=== PATIENT | male | born 1965 | race Caucasian/White ===

== ENCOUNTER 2016-12-26 16:46 | Emergency (ER) | payer MEDICARE ==
[~2016-12-26] VITALS: Ht 182.9 cm; Wt 103.0 kg
[~2016-12-26 16:46] MED LIST: ARIP20TA8 PO; ASPI-650 PO; AZIT-14 PO; BENZ100C PO; BUSP15TA PO; CEPH-368 PO; CETI10CA PO; CIPR500T87 PO; FLUO20CA19 PO; IBUP800T PO; METR500T PO; OXYC-229 PO; PRED20TA PO; RISP1TAB3 PO
[2016-12-26] MEDS ORDERED: SODIUM CHLORIDE 0.9% 1,000 ML IV ONE (16:56)
[2016-12-26] MEDS ORDERED: DIPHENHYDRAMINE 50 MG/ML, 1ML IVPush ONE (17:00)
[2016-12-26 17:17] LABS: HEMOGLOBIN 16.1 g/dL (13.7-18.0)
[2016-12-26] MEDS ORDERED: DIPHENHYDRAMINE 25 MG CAPSULE ONE (17:20)
[2016-12-26 17:29] LABS: ASPARTATE AMINO TRANSFERASE 20 U/L (15-37); BLOOD UREA NITROGEN 12 mg/dL (7-18)
[2016-12-26] MEDS ORDERED: DIPHENHYDRAMINE 25 MG CAPSULE PO ONE (17:30)
[2016-12-26 18:17] VITALS: BP 147/86
== END 2016-12-26 19:05 | disposition home or self-care (01) ==
LOC: ED 18:20
DX: T43.595A Adverse effect of other antipsychotics and neuroleptics, initial encounter (principal); F41.1 Generalized anxiety disorder; J44.9 Chronic obstructive pulmonary disease, unspecified; F31.9 Bipolar disorder, unspecified; J45.909 Unspecified asthma, uncomplicated; N40.0 Benign prostatic hyperplasia without lower urinary tract symptoms; M54.9 Dorsalgia, unspecified; G89.29 Other chronic pain; F17.210 Nicotine dependence, cigarettes, uncomplicated; Z88.0 Allergy status to penicillin
CPT/HCPCS: 36415; 80053; 85025; 93005; 99285; Q0163

== ENCOUNTER 2017-06-22 07:50 | Emergency (ER) | payer MEDICARE ==
[~2017-06-22] VITALS: Ht 182.9 cm; Wt 104.1 kg
[~2017-06-22 07:50] MED LIST changes: +ARIP20TA5 PO; -ARIP20TA8 PO; -AZIT-14 PO; +AZIT250T89 PO; +IBUP-1223 PO; -IBUP800T PO; -OXYC-229 PO; +OXYC-307 PO
[2017-06-22 07:52] VITALS: BP 125/82
[2017-06-22] MEDS ORDERED: ALBUTEROL/IPRATROPIUM 2.5MG/0.5MG, 3 ML NPPB ONE (08:30)
[2017-06-22 08:34] LABS: HEMATOCRIT 45.8 % (39.2-51.8); HEMOGLOBIN 15.6 g/dL (13.7-18.0); WHITE BLOOD COUNT 7.5 x10^3/uL (3.4-10)
[2017-06-22] MEDS ORDERED: ALBUTEROL/IPRATROPIUM 2.5MG/0.5MG, 3 ML ONE (08:44)
[2017-06-22 09:10] LABS: BLOOD UREA NITROGEN 21 mg/dL (7-18)
[2017-06-22] MEDS ORDERED: SODIUM CHLORIDE FLUSH 10ML SYR IVF ONE (09:30)
== END 2017-06-22 09:54 | disposition home or self-care (01) ==
LOC: ED 09:35
DX: J44.1 Chronic obstructive pulmonary disease with (acute) exacerbation (principal); Z88.0 Allergy status to penicillin; Z88.8 Allergy status to other drugs, medicaments and biological substances
CPT/HCPCS: 36415; 71010; 80048; 82040; 83880; 85025; 93005; 94640; 99285; J7512; J7620

== ENCOUNTER → 2018-11-16 | Outpatient (CLI) | payer MEDICARE ==
[~2018-11-16] MED LIST changes: +ALBU1.25 NEB; +ALBU8.5H8 INH
[2018-11-16 11:28] LABS: BASOPHILS % (AUTO) 0 % (0-1); EOSINOPHILS # (AUTO) 0.07 x10^3/uL (0-0.4); EOSINOPHILS % (AUTO) 1 % (1-7); LYMPHOCYTES % (AUTO) 11 % (22-44); MD NO; MEAN CORPUSCULAR HEMOGLOBIN 32.6 pg (27.5-34.5); MEAN CORPUSCULAR HGB CONC 34.6 g/dL (33.2-36.2); MEAN CORPUSCULAR VOLUME 94.5 fL (81-97); MEAN PLATELET VOLUME 7.2 fL (7.4-10.4); MONOCYTES % (AUTO) 3 % (2-9); NEUTROPHILS # (AUTO) 7.96 x10^3/uL (1.8-6.8); NEUTROPHILS % (AUTO) 85 % (42-75); PLATELET COUNT 303 x10^3/uL (130-400); RED BLOOD COUNT 4.62 x10^6/uL (4.38-5.82); RED CELL DISTRIBUTION WIDTH 14.2 % (9.4-14.8)
[2018-11-16 11:38] LABS: ANION GAP 4 mmol/L (5-15); CALCIUM 9.2 mg/dL (8.5-10.1); CHLORIDE 105 mmol/L (98-107)
[2018-11-16 11:40] LABS: CREATININE 1.12 mg/dL (0.7-1.3)
[2018-11-16 11:42] LABS: INTERNATIONAL NORMALIZED RATIO 0.93 (0.93-1.1); PROTHROMBIN TIME 9.9 Seconds (9.6-11.5)
== END | disposition home or self-care (01) ==
LOC: STAR 10:23
PROVIDERS: ATTEND Neurological Surgery
DX: Z01.818 Encounter for other preprocedural examination (principal); M54.17 Radiculopathy, lumbosacral region
CPT/HCPCS: 36415; 71046; 80048; 85025; 85610; 85730; 93005

== ENCOUNTER 2018-12-12 05:19 | Day surgery (SDC) | payer MEDICARE ==
[2018-11-16 10:50] VITALS: BP 133/88
[~2018-12-12] VITALS: Ht 182.9 cm; Wt 100.3 kg
[2018-12-12] MEDS ORDERED: LACTATED RINGERS 1,000 ML IV SCH (06:04)
[2018-12-12] MEDS ORDERED: HYDR-3240 PO (06:08)
[2018-12-12 06:09] VITALS: BP 133/88
[2018-12-12] MEDS ORDERED: FENTANYL PF 250 MCG/5ML ONE (06:58)
[2018-12-12] MEDS ORDERED: MIDAZOLAM 1 MG/ML, 2ML ONE (06:58)
[2018-12-12] MEDS ORDERED: BACITRACIN 50,000 UNIT ONE (07:06)
[2018-12-12] MEDS ORDERED: BUPIVACAINE/PF-EPI 0.5% 1:200K ONE (07:06)
[2018-12-12] MEDS ORDERED: THROMBIN 5,000 UNIT VIAL TP ONE (07:06)
[2018-12-12] MEDS ORDERED: KETAMINE 50 MG/ML, 10ML ONE (07:22)
[2018-12-12] MEDS ORDERED: METOPROLOL 1 MG/ML, 5ML ONE (07:35)
[2018-12-12] MEDS ORDERED: PROPOFOL 10 MG/ML, 20ML ONE (08:01)
[2018-12-12] MEDS ORDERED: ONDANSETRON 2MG/ML, 2ML ONE (08:01)
[2018-12-12] MEDS ORDERED: PHENYLEPHRINE 10 MG/ML ONE (08:01)
[2018-12-12] MEDS ORDERED: CEFAZOLIN 1,000 MG ONE (08:01)
[2018-12-12] MEDS ORDERED: DEXAMETHASONE 4 MG/ML, 1ML ONE (08:01)
[2018-12-12] MEDS ORDERED: ROCURONIUM 10MG/ML,5ML ONE (08:01)
[2018-12-12] MEDS ORDERED: LIDOCAINE-MPF 2% ,5ML ONE (08:01)
[2018-12-12] MEDS ORDERED: MEPERIDINE/PF 100 MG/ML ONE (08:03)
[2018-12-12] MEDS ORDERED: ALBUTEROL/IPRATROPIUM 2.5MG/0.5MG, 3 ML NPPB PRN (08:30)
[2018-12-12] MEDS ORDERED: MEPERIDINE/PF 25MG/0.5ML IVPush PRN (08:30)
[2018-12-12] MEDS ORDERED: ACETAMINOPHEN 325 MG TABLET PO PRN (08:30)
[2018-12-12] MEDS ORDERED: OXYcodone 5 MG/5 ML ORAL.SOL UDC PO PRN (08:30)
[2018-12-12] MEDS ORDERED: FENTANYL PF 100 MCG/2ML IV PRN (08:30)
[2018-12-12] MEDS ORDERED: PROMETHAZINE 25 MG/ML, 1ML IV PRN (08:30)
[2018-12-12] MEDS ORDERED: hydrALAzine 20 MG/ML, 1ML IV PRN (08:30)
[2018-12-12] MEDS ORDERED: LORazepam 2 MG/ML, 1ML IVPush PRN (08:30)
[2018-12-12] MEDS ORDERED: HALOPERIDOL 5 MG/ML IV PRN (08:30)
[2018-12-12] MEDS ORDERED: HYDROmorphone 1 MG/ML, 1ML ONE ×2 (09:10→09:37)
[2018-12-12] MEDS ORDERED: OXYcodone 5 MG/5 ML ORAL.SOL UDC ONE (09:10)
[2018-12-12] MEDS ORDERED: ACETAMINOPHEN 650 MG/20.3 ML UDC ONE (09:10)
[2018-12-12] MEDS: HYDROmorphone 2 MG/ML, 1ML IVPush PRN ×3 (09:15→09:40)
[2018-12-12] MEDS ORDERED: LORazepam 2 MG/ML, 1ML ONE (09:16)
[2018-12-12] MEDS ORDERED: CYCLOBENZAPRINE 10 MG TABLET ONE (09:46)
[2018-12-12] MEDS ORDERED: CYCLOBENZAPRINE 10 MG TABLET PO ONE (10:00)
== END 2018-12-12 12:15 | disposition home or self-care (01) ==
LOC: OUT 05:19
PROVIDERS: ATTEND Neurological Surgery
DX: M51.16 Intervertebral disc disorders with radiculopathy, lumbar region (principal); M48.061 Spinal stenosis, lumbar region without neurogenic claudication; J44.9 Chronic obstructive pulmonary disease, unspecified; Z88.0 Allergy status to penicillin; Z88.8 Allergy status to other drugs, medicaments and biological substances
CPT/HCPCS: 63030; 72100; J0690; J1100; J1170; J2060; J2175; J2250; J2370; J2405; J2704; J3010; J3490; J7120

== ENCOUNTER 2019-10-13 07:21 | Emergency (ER) | payer MEDICARE ==
[~2019-10-13] VITALS: Ht 182.9 cm; Wt 108.4 kg
[~2019-10-13 07:21] MED LIST changes: +HYDR-3240 PO
[2019-10-13 07:24] VITALS: BP 151/88
--- NOTE | 2019-10-13 07:31 | NUR ---
Pt to room from lobby with steady gait and balance.
[2019-10-13] MEDS ORDERED: FLUT1AER INH (07:45)
[2019-10-13] MEDS ORDERED: ARIP20TA5 PO (07:45)
[2019-10-13] MEDS ORDERED: FLUO40CA9 PO (07:45)
[2019-10-13] MEDS ORDERED: BUSP15TA PO (07:45)
--- NOTE | 2019-10-13 08:08 | NUR ---
Patient/Caregiver given discharge instructions and they have confirmed that they understand the instructions. Patient ambulatory with steady gait.
== END 2019-10-13 08:09 | disposition home or self-care (01) ==
LOC: ED 08:00
DX: K02.9 Dental caries, unspecified (principal); F17.210 Nicotine dependence, cigarettes, uncomplicated
CPT/HCPCS: 99283

== ENCOUNTER 2019-11-01 19:06 | Inpatient (IN) | payer MEDICARE ==
[~2019-11-01] VITALS: Ht 182.9 cm; Wt 112.6 kg
[~2019-11-01 19:06] MED LIST changes: +FLUO40CA9 PO; +FLUT1AER INH
--- NOTE | 2019-11-01 19:40 | NUR ---
PT CAME IN [place] OR RIGHT SIDED ABD PAIN X 6 DAYS. PT ALSO HAS HAD COUGH FOR THE PAST WEEK. HX OF COPD. DENIES FEVERS, NVD, SORE THROAT. EKG DONE. PT HOOKED UP TO TRIM LINE WORKER. RESIDENT MD IS BEDSIDE. PT IS 95% ON ROOM AIR.
[2019-11-01] MEDS ORDERED: ALBUTEROL/IPRATROPIUM 2.5MG/0.5MG, 3 ML NPPB ONE (20:00)
[2019-11-01] MEDS ORDERED: KETOROLAC 30 MG/1 ML IM ONE (20:00)
[2019-11-01] MEDS ORDERED: ALBUTEROL/IPRATROPIUM 2.5MG/0.5MG, 3 ML ONE ×2 (20:03→20:08)
[2019-11-01] MEDS ORDERED: KETOROLAC 60 MG/2 ML ONE (20:06)
[2019-11-01 20:07] LABS: BASOPHILS # (AUTO) 0.03 x10^3/uL (0-0.1); BASOPHILS % (AUTO) 0 % (0-1); EOSINOPHILS # (AUTO) 0.14 x10^3/uL (0-0.4); EOSINOPHILS % (AUTO) 2 % (1-7); LYMPHOCYTES # (AUTO) 1.56 x10^3/uL (1-3.4); LYMPHOCYTES % (AUTO) 20 % (22-44); MD NO; MEAN CORPUSCULAR HEMOGLOBIN 32.4 pg (27.5-34.5); MEAN CORPUSCULAR VOLUME 95.2 fL (81-97); MEAN PLATELET VOLUME 7.6 fL (7.4-10.4); MONOCYTES # (AUTO) 1.17 x10^3/uL (0.2-0.8); MONOCYTES % (AUTO) 15 % (2-9); NEUTROPHILS # (AUTO) 4.86 x10^3/uL (1.8-6.8); NEUTROPHILS % (AUTO) 63 % (42-75); PLATELET COUNT 240 x10^3/uL (130-400); RED BLOOD COUNT 4.84 x10^6/uL (4.38-5.82); RED CELL DISTRIBUTION WIDTH 14.6 % (9.4-14.8)
[2019-11-01 20:18] LABS: ALANINE AMINOTRANSFERASE 37 U/L (12-78); ANION GAP 4 mmol/L (5-15); CALCIUM 9.3 mg/dL (8.5-10.1); CHLORIDE 109 mmol/L (98-107); CREATININE 1.14 mg/dL (0.7-1.3)
[2019-11-01 20:21] LABS: ALKALINE PHOSPHATASE 74 U/L (45-117); BILIRUBIN,TOTAL 0.2 mg/dL (0.2-1.0); TOTAL PROTEIN 7.4 g/dL (6.4-8.2)
[2019-11-01] MEDS ORDERED: OMNIPAQUE 350 MG/ML, 100ML BOTTLE ONE (20:24)
--- NOTE | 2019-11-01 20:24 | NUR ---
PT SITING IN [facility]. REPORTS THAT "BREATHING TREATMENT HAS HELPED". PAIN MEDICATION GIVEN. NO OTHER NEEDS AT THIS TIME.
[2019-11-01] MEDS ORDERED: methylPREDNISolone SOD SUCC 125 MG/2 ML IVPush SCH (20:30)
[2019-11-01] MEDS ORDERED: MORPHINE SULFATE 4 MG/ML, 1ML IVPush PRN (20:30)
[2019-11-01] MEDS ORDERED: methylPREDNISolone SOD SUCC 125 MG/2 ML ONE (20:37)
[2019-11-01] MEDS ORDERED: MORPHINE SULFATE 4 MG/ML, 1ML ONE (20:50)
--- NOTE | 2019-11-01 20:58 | NUR ---
PT IN CT
--- NOTE | 2019-11-01 21:30 | NUR ---
PT RESTING IN [facility]. REPORTS IMPROVEMENT FROM A 10/10 TO A 7/10
[2019-11-01] MEDS ORDERED: CEFTRIAXONE PMX 1GM/50ML 50 ML ONE (21:39)
--- NOTE | 2019-11-01 21:56 | NUR ---
REPORT GIVEN TO LUIS ANTONIO TAO.
--- NOTE | 2019-11-01 21:57 | NUR ---
Report received from LUIS ANTONIO Shore. This RN to assume care.
[2019-11-01] MEDS ORDERED: CEFTRIAXONE PMX 1GM/50ML 50 ML IVPB ONE (22:00)
[2019-11-01 22:44] VITALS: BP 138/90
[2019-11-01] MEDS ORDERED: AZITHROMYCIN 500 MG in SODIUM CHLORIDE 0.9% 250 ML IV SCH ×2 (23:00→23:30)
[2019-11-01] MEDS ORDERED: ENALAPRILAT 1.25 MG/ML, 2ML IVPush PRN (23:30)
[2019-11-01] MEDS ORDERED: ONDANSETRON 2MG/ML, 2ML IVPush PRN (23:30)
[2019-11-01] MEDS ORDERED: CEFTRIAXONE PMX 1GM/50ML 50 ML IV SCH (23:30)
[2019-11-01] MEDS: ALBUTEROL SULFATE 2.5 MG/3 ML NPPB SCH (23:30)
[2019-11-01] MEDS ORDERED: ALBUTEROL SULFATE 2.5 MG/3 ML NPPB PRN (23:30)
[2019-11-01] MEDS ORDERED: ACETAMINOPHEN 325 MG TABLET PO PRN (23:30)
[2019-11-02] MEDS ORDERED: MORPHINE SULFATE 4 MG/ML, 1ML ONE (00:11)
[2019-11-02] MEDS: morphine SULFATE 10 MG/ML, 1ML IVPush PRN ×2 (00:16→20:04)
[2019-11-02] MEDS ORDERED: NICOTINE 14MG/24 HR PATCH.TD24 TD SCH (00:30)
[2019-11-02] MEDS ORDERED: hydrALAzine 20 MG/ML, 1ML IVPush PRN (00:30)
[2019-11-02] MEDS: ENOXAPARIN 30 MG/0.3 ML SQ SCH ×3 (00:30→23:07)
[2019-11-02 01:02] VITALS: BP 137/85
[2019-11-02] MEDS: methylPREDNISolone SOD SUCC 125 MG/2 ML IVPush SCH ×4 (03:40→22:16)
[2019-11-02] MEDS: KETOROLAC 30 MG/1 ML IV PRN ×3 (03:45→19:27)
[2019-11-02] MEDS: ALBUTEROL SULFATE 2.5 MG/3 ML NPPB SCH ×5 (04:22→20:50)
[2019-11-02 05:54] LABS: ANION GAP 8 mmol/L (5-15); CALCIUM 8.7 mg/dL (8.5-10.1); CHLORIDE 109 mmol/L (98-107)
[2019-11-02 05:56] LABS: CREATININE 1.19 mg/dL (0.7-1.3)
[2019-11-02 06:00] LABS: BASOPHILS # (AUTO) 0.01 x10^3/uL (0-0.1); BASOPHILS % (AUTO) 0 % (0-1); EOSINOPHILS % (AUTO) 0 % (1-7); LYMPHOCYTES # (AUTO) 0.49 x10^3/uL (1-3.4); LYMPHOCYTES % (AUTO) 8 % (22-44); MD NO; MEAN CORPUSCULAR HEMOGLOBIN 32.3 pg (27.5-34.5); MEAN CORPUSCULAR HGB CONC 33.8 g/dL (33.2-36.2); MEAN CORPUSCULAR VOLUME 95.4 fL (81-97); MEAN PLATELET VOLUME 8.1 fL (7.4-10.4); MONOCYTES # (AUTO) 0.06 x10^3/uL (0.2-0.8); MONOCYTES % (AUTO) 1 % (2-9); NEUTROPHILS # (AUTO) 5.38 x10^3/uL (1.8-6.8); NEUTROPHILS % (AUTO) 91 % (42-75); PLATELET COUNT 234 x10^3/uL (130-400); RED CELL DISTRIBUTION WIDTH 14.4 % (9.4-14.8)
[2019-11-02] MEDS: BUDESONIDE 0.5 MG/2 ML INHA NPPB SCH ×2 (07:13→20:50)
[2019-11-02 07:26] VITALS: BP 138/86
[2019-11-02] MEDS: LIDODERM 5% PATCH TD SCH (08:35)
[2019-11-02] MEDS: INSULIN LISPRO 100 UNITS/ML, PEN SQ-INSULIN SCH ×4 (08:35→20:32)
[2019-11-02] MEDS: FLUOXETINE HCL 20 MG CAPSULE PO SCH (08:36)
[2019-11-02] MEDS: GUAIFENESIN ER 600 MG TABLET PO SCH ×2 (08:36→20:13)
[2019-11-02 12:50] VITALS: BP 151/83
[2019-11-02 21:58] VITALS: BP 146/83
[2019-11-02 22:20] VITALS: BP 138/86
[2019-11-03 02:48] VITALS: BP 148/90
[2019-11-03] MEDS: methylPREDNISolone SOD SUCC 125 MG/2 ML IVPush SCH (04:02)
[2019-11-03] MEDS: ALBUTEROL SULFATE 2.5 MG/3 ML NPPB SCH ×2 (04:08→08:12)
[2019-11-03] MEDS: morphine SULFATE 10 MG/ML, 1ML IVPush PRN (04:45)
[2019-11-03] MEDS: LIDODERM 5% PATCH TD SCH (07:30)
[2019-11-03] MEDS ORDERED: LEVO750T26 PO ×2 (07:52)
[2019-11-03] MEDS ORDERED: PRED20TA PO (07:52)
[2019-11-03] MEDS ORDERED: GUAI600T31 PO (07:52)
[2019-11-03] MEDS ORDERED: LIDO700A20 TD (07:52)
[2019-11-03] MEDS: FLUOXETINE HCL 20 MG CAPSULE PO SCH (08:01)
[2019-11-03] MEDS: GUAIFENESIN ER 600 MG TABLET PO SCH (08:01)
[2019-11-03] MEDS: INSULIN LISPRO 100 UNITS/ML, PEN SQ-INSULIN SCH (08:01)
[2019-11-03] MEDS: BUDESONIDE 0.5 MG/2 ML INHA NPPB SCH (08:10)
[2019-11-03 08:29] VITALS: BP 157/92
[2019-11-03] MEDS ORDERED: OXYC-302 PO (10:18)
== END 2019-11-03 10:27 | disposition home or self-care (01) | DRG 190 ==
LOC: ED 21:09 → EDIP 21:58 → 3N 22:40 → DCLOUNGE 11-03 10:15
PROVIDERS: ADMIT Family Medicine; ATTEND Hospitalist
DX: J44.0 Chronic obstructive pulmonary disease with (acute) lower respiratory infection (principal); J15.9 Unspecified bacterial pneumonia; J44.1 Chronic obstructive pulmonary disease with (acute) exacerbation; F17.210 Nicotine dependence, cigarettes, uncomplicated; T38.0X5A Adverse effect of glucocorticoids and synthetic analogues, initial encounter; R00.0 Tachycardia, unspecified; R06.82 Tachypnea, not elsewhere classified; R73.9 Hyperglycemia, unspecified; S39.011A Strain of muscle, fascia and tendon of abdomen, initial encounter; E66.9 Obesity, unspecified; F41.8 Other specified anxiety disorders; Z80.8 Family history of malignant neoplasm of other organs or systems; Z80.3 Family history of malignant neoplasm of breast; Z88.0 Allergy status to penicillin; Z83.6 Family history of other diseases of the respiratory system; Z68.33 Body mass index [BMI] 33.0-33.9, adult; Y93.89 Activity, other specified; Y92.89 Other specified places as the place of occurrence of the external cause; Y99.8 Other external cause status
CPT/HCPCS: 36415; 36600; 71046; 71275; 80048; 80053; 82962; 83605; 85025; 87040; 93005; 94640; 99285; G0378; J0456; J0696; J1885; J2405; J7613; J7620; J7626; Q9967; J1815; J2270; J2930; J7050

== ENCOUNTER 2019-11-03 16:29 | Inpatient (IN) | payer MEDICARE ==
[~2019-11-03] VITALS: Ht 182.9 cm; Wt 107.1 kg
[~2019-11-03 16:29] MED LIST changes: +GUAI600T31 PO; +LEVO750T26 PO; +LIDO700A20 TD; +OXYC-302 PO
[2019-11-03] MEDS ORDERED: methylPREDNISolone SOD SUCC 125 MG/2 ML ONE (16:52)
[2019-11-03] MEDS ORDERED: HYDROcodone/APAP 5/325 TABLET ONE (16:53)
[2019-11-03] MEDS ORDERED: methylPREDNISolone SOD SUCC 125 MG/2 ML IVPush ONE (17:00)
[2019-11-03] MEDS ORDERED: SODIUM CHLORIDE FLUSH 10ML SYR IVF ONE (17:00)
[2019-11-03] MEDS ORDERED: ALBUTEROL SULFATE 2.5 MG/3 ML NPPB ONE (17:00)
[2019-11-03] MEDS ORDERED: ALBUTEROL/IPRATROPIUM 2.5MG/0.5MG, 3 ML NPPB ONE (17:00)
[2019-11-03] MEDS ORDERED: HYDROcodone/APAP 5/325 TABLET PO ONE (17:00)
[2019-11-03] MEDS ORDERED: MORPHINE SULFATE 4 MG/ML, 1ML ONE (17:06)
[2019-11-03 17:13] LABS: ANION GAP 9 mmol/L (5-15); CALCIUM 8.9 mg/dL (8.5-10.1); CHLORIDE 110 mmol/L (98-107); CREATININE 1.43 mg/dL (0.7-1.3)
[2019-11-03] MEDS ORDERED: ALBUTEROL/IPRATROPIUM 2.5MG/0.5MG, 3 ML ONE ×2 (17:16→18:39)
--- NOTE | 2019-11-03 17:19 | NUR ---
RT AT BEDSIDE AT THIS TIME. THIS IS A 53 YO MALE WHO PRESENTS TO THE ER C/O SOB AND PAIN WITH COUGHING. PT WAS RECENTLY ADMITTED FOR A COUGH AND "PNEUMONIA" AND A TORN MUSCLE. PT REPORTS IT IS TOO PAINFUL TO COUGH OR DEEP BREATH D/T THE TORN MUSCLES. PT MEDICATED ORDERED FOR PAIN. PT AO X 4. PT BREATHING SHALLOWLY AND RAPIDLY AT RR30. PT ONLY ABLE TO SPEAK 2-3 WORDS AT A TIME. PT ON CONT BP, CARDIAC AND O2 MONITORS. CALL LIGHT WITHIN REACH. WILL CONT TO MONITOR PT.
--- NOTE | 2019-11-03 17:28 | NUR ---
AFTER BREATHING TRX, PT'S RR HAS DECREASED TO 22-24. PT ABLE TO TAKE SLOWER, DEEPER BREATHS AND SPEAK IN SHORT 3-5 WORD SENTENCES BEFORE FEELING SLIGHTLY SHORT OF BREATH. PT ON CONT BP, CARDIAC AND O2 MONITORS. CALL LIGHT WITHIN REACH. WILL CONT TO MONITOR PT.
[2019-11-03] MEDS ORDERED: MORPHINE SULFATE 4 MG/ML, 1ML IVPush ONE (17:30)
--- NOTE | 2019-11-03 18:25 | NUR ---
KEISHA CRESPO AT BEDSIDE FOR RECHECK/EXPLANATION OF RESULTS. PT AO X 4. PT RR NOW 14-18. PT APPEARS TO BE MORE RELAXED AND BREATHING MORE EASILY AT THIS TIME. PT ABLE TO SPEAK IN SHORT 3-5 WORD SENTENCES W/O DIFFICULTY. CALL LIGHT WITHIN REACH. WILL CONT TO MONITOR PT.
--- NOTE | 2019-11-03 18:39 | NUR ---
RT AT BEDSIDE FOR SECOND BREATHING TRX.
[2019-11-03] MEDS ORDERED: KETOROLAC 30 MG/1 ML ONE (18:53)
[2019-11-03] MEDS ORDERED: KETOROLAC 30 MG/1 ML IVPush ONE (19:00)
--- NOTE | 2019-11-03 19:07 | NUR ---
ADMITTING MD STEINBERG AT BEDSIDE FOR EVAL.
--- NOTE | 2019-11-03 19:08 | NUR ---
PT WAS UP TO RESTROOM. STEADY UPON AMBULATION TO AND FROM RESTROOM. PT NOW RESTING ON GURNEY. RESP EVEN AND UNLABORED. RR 18. PT ABLE TO SPEAK IN SHORT 3-5 WORD SENTENCES W/O DIFFICULTY. PT ON CONT BP, CARDIAC AND O2 MONITORS. PT WAS MEDICATED ORDERED FOR PAIN. PT PROVIDED WITH PILLOW FOR SPLINTING WHILE COUGHING. CALL LIGHT WITHIN REACH. WILL CONT TO MONITOR PT.
[2019-11-03] MEDS ORDERED: NICOTINE 14MG/24 HR PATCH.TD24 ONE (19:26)
[2019-11-03] MEDS ORDERED: CEFTRIAXONE PMX 2GM/50ML 50 ML ONE (19:26)
[2019-11-03] MEDS ORDERED: POLYETHYLENE GLYCOL 17 GM PACKET PO PRN (19:30)
[2019-11-03] MEDS ORDERED: DOCUSATE 100 MG CAPSULE PO PRN (19:30)
[2019-11-03] MEDS ORDERED: methylPREDNISolone SOD SUCC 125 MG/2 ML IVPush SCH (19:30)
[2019-11-03] MEDS ORDERED: ONDANSETRON 2MG/ML, 2ML IVPush PRN (19:30)
[2019-11-03] MEDS ORDERED: ONDANSETRON ODT 4 MG PO PRN (19:30)
[2019-11-03] MEDS ORDERED: PROMETHAZINE 25 MG/ML, 1ML IM PRN (19:30)
[2019-11-03] MEDS ORDERED: ACETAMINOPHEN 325 MG TABLET PO PRN (19:30)
[2019-11-03] MEDS ORDERED: morphine SULFATE 10 MG/ML, 1ML IVPush PRN (19:30)
[2019-11-03] MEDS ORDERED: BISACODYL 10 MG SUPP PR PRN (19:30)
[2019-11-03] MEDS: NICOTINE 14MG/24 HR PATCH.TD24 TD SCH (19:32)
[2019-11-03] MEDS: CEFTRIAXONE PMX 2GM/50ML 50 ML IV SCH (19:32)
--- NOTE | 2019-11-03 19:46 | NUR ---
REPORT TO LUIS ANTONIO BRICENO ON MED/SURG.
[2019-11-03 19:49] LABS: FREE T4 (FREE THYROXINE) 0.93 ng/dL (0.76-1.46)
[2019-11-03 20:17] VITALS: BP 156/101
[2019-11-03] MEDS: DOXYCYCLINE 100MG TABLET PO SCH (20:56)
[2019-11-03] MEDS: GUAIFENESIN ER 600 MG TABLET PO SCH (20:56)
[2019-11-03] MEDS: methylPREDNISolone SOD SUCC 125 MG/2 ML IVPush SCH (23:26)
[2019-11-03] MEDS: OXYcodone IR 5MG TABLET PO PRN ×2 (23:27→23:56)
[2019-11-04] MEDS: ALBUTEROL SULFATE 2.5 MG/3 ML NPPB PRN ×2 (01:15→04:39)
[2019-11-04 03:12] VITALS: BP 162/92
[2019-11-04] MEDS: OXYcodone IR 5MG TABLET PO PRN ×2 (04:35→15:03)
[2019-11-04 05:38] LABS: ALBUMIN 4.1 g/dL (3.4-5.0); ANION GAP 9 mmol/L (5-15); CALCIUM 8.6 mg/dL (8.5-10.1); CHLORIDE 108 mmol/L (98-107)
[2019-11-04 05:39] LABS: MEAN CORPUSCULAR HEMOGLOBIN 32.4 pg (27.5-34.5); MEAN CORPUSCULAR HGB CONC 33.7 g/dL (33.2-36.2); MEAN CORPUSCULAR VOLUME 96.2 fL (81-97); PLATELET COUNT 270 x10^3/uL (130-400); RED BLOOD COUNT 4.66 x10^6/uL (4.38-5.82)
[2019-11-04 05:42] LABS: ALANINE AMINOTRANSFERASE 41 U/L (12-78); ALKALINE PHOSPHATASE 71 U/L (45-117); BILIRUBIN,TOTAL 0.4 mg/dL (0.2-1.0); CHOL/HDL RATIO 2.8; CHOLESTEROL, TOTAL 205 mg/dL (140-239); CREATININE 1.42 mg/dL (0.7-1.3); HDL CHOL % 35 % (26-37); HDL CHOLESTEROL (DIRECT) 72 mg/dL (40-60); LDL CHOLESTEROL,CALCULATED 119 mg/dL (54-169); LDL/HDL RATIO 1.7 (0.5-3.0); TOTAL PROTEIN 7.8 g/dL (6.4-8.2); TRIGLYCERIDES 68 mg/dL (50-200); VLDL CHOLESTEROL 14 mg/dL (0-25)
[2019-11-04 05:56] LABS: MD YES
[2019-11-04 05:57] LABS: <PLATELET ESTIMATE> ADEQUATE; <PLT MORPHOLOGY> NORMAL PLT MORPH; <RBC MORPHOLOGY> NORMAL; LYMPH#(MANUAL) 1.13 x10^3/uL (1-3.4); LYMPHS% (MANUAL) 6 % (22-44); MONOS#(MANUAL) 0.19 x10^3/uL (0.3-2.7); MONOS% (MANUAL) 1 % (2-9); SEG#(MANUAL) 17.58 x10^3/uL (1.8-6.8); SEGS% (MANUAL) 93 % (42-75)
[2019-11-04] MEDS ORDERED: FUROSEMIDE 20 MG/2 ML IV ONE (06:00)
[2019-11-04] MEDS: methylPREDNISolone SOD SUCC 125 MG/2 ML IVPush SCH ×4 (06:02→23:48)
[2019-11-04] MEDS: ALBUTEROL/IPRATROPIUM 2.5MG/0.5MG, 3 ML NPPB SCH ×4 (07:00→19:29)
[2019-11-04] MEDS ORDERED: BUSPIRONE 5 MG TABLET PO PRN (07:30)
[2019-11-04] MEDS: GUAIFENESIN ER 600 MG TABLET PO SCH ×2 (07:44→20:57)
[2019-11-04] MEDS: DOXYCYCLINE 100MG TABLET PO SCH ×2 (07:44→20:57)
[2019-11-04] MEDS: FLUOXETINE HCL 20 MG CAPSULE PO SCH (07:44)
[2019-11-04 08:12] VITALS: BP 183/128
[2019-11-04] MEDS: hydrALAzine 20 MG/ML, 1ML IVPush PRN (08:21)
[2019-11-04 09:30] VITALS: BP 194/95
[2019-11-04] MEDS: BUSPIRONE 5 MG TABLET PO SCH ×2 (09:30→20:57)
[2019-11-04] MEDS: morphine SULFATE 10 MG/ML, 1ML IVPush PRN ×6 (09:42→21:04)
[2019-11-04] MEDS: LABETALOL 5MG/ML, 20ML IVPush PRN ×2 (10:28→12:29)
[2019-11-04 11:00] VITALS: BP 171/110
[2019-11-04 12:45] VITALS: BP 162/97
[2019-11-04 19:52] VITALS: BP 171/87
[2019-11-04] MEDS: CEFTRIAXONE PMX 2GM/50ML 50 ML IV SCH (19:57)
[2019-11-04] MEDS: NICOTINE 14MG/24 HR PATCH.TD24 TD SCH (19:57)
[2019-11-05] VITALS (8 sets, daily range): BP systolic 137–181; BP diastolic 80–118
[2019-11-05] MEDS: morphine SULFATE 10 MG/ML, 1ML IVPush PRN ×8 (02:09→21:36)
[2019-11-05] MEDS: ALBUTEROL/IPRATROPIUM 2.5MG/0.5MG, 3 ML NPPB SCH ×5 (02:09→18:52)
[2019-11-05] MEDS: methylPREDNISolone SOD SUCC 125 MG/2 ML IVPush SCH ×3 (05:59→17:11)
[2019-11-05 06:25] LABS: ALBUMIN 3.9 g/dL (3.4-5.0); ANION GAP 8 mmol/L (5-15); CALCIUM 8.8 mg/dL (8.5-10.1); CHLORIDE 107 mmol/L (98-107)
[2019-11-05 06:28] LABS: ALANINE AMINOTRANSFERASE 58 U/L (12-78); ALKALINE PHOSPHATASE 72 U/L (45-117); BILIRUBIN,TOTAL 0.7 mg/dL (0.2-1.0); CREATININE 1.08 mg/dL (0.7-1.3); TOTAL PROTEIN 7.5 g/dL (6.4-8.2)
[2019-11-05] MEDS: FLUOXETINE HCL 20 MG CAPSULE PO SCH (07:55)
[2019-11-05] MEDS: BUSPIRONE 5 MG TABLET PO SCH ×2 (07:55→20:07)
[2019-11-05] MEDS: GUAIFENESIN ER 600 MG TABLET PO SCH ×2 (07:56→20:07)
[2019-11-05] MEDS: DOXYCYCLINE 100MG TABLET PO SCH ×2 (07:56→20:12)
[2019-11-05] MEDS: LABETALOL 5MG/ML, 20ML IVPush PRN ×2 (07:56→13:38)
[2019-11-05] MEDS: hydrALAzine 20 MG/ML, 1ML IVPush PRN ×2 (09:28→17:33)
[2019-11-05] MEDS ORDERED: CALCIUM CARBONATE 500 MG TAB.CHEW PO PRN (13:00)
[2019-11-05] MEDS: FAMOTIDINE 20 MG TABLET PO SCH ×2 (13:37→20:12)
[2019-11-05] MEDS: LORazepam 0.5MG TABLET PO PRN (14:34)
[2019-11-05] MEDS: CEFTRIAXONE PMX 2GM/50ML 50 ML IV SCH (20:02)
[2019-11-05] MEDS: NICOTINE 14MG/24 HR PATCH.TD24 TD SCH (20:07)
[2019-11-06 00:38] VITALS: BP 172/92
[2019-11-06] MEDS: morphine SULFATE 10 MG/ML, 1ML IVPush PRN ×5 (02:21→20:03)
[2019-11-06 06:09] LABS: ANION GAP 6 mmol/L (5-15); CHLORIDE 106 mmol/L (98-107)
[2019-11-06] MEDS: methylPREDNISolone SOD SUCC 125 MG/2 ML IVPush SCH ×5 (06:10→21:12)
[2019-11-06 06:11] LABS: BASOPHILS % (AUTO) 0 % (0-1); CALCIUM 8.7 mg/dL (8.5-10.1); CREATININE 1.03 mg/dL (0.7-1.3); EOSINOPHILS % (AUTO) 0 % (1-7); LYMPHOCYTES # (AUTO) 0.72 x10^3/uL (1-3.4); LYMPHOCYTES % (AUTO) 7 % (22-44); MD NO; MEAN CORPUSCULAR HEMOGLOBIN 32.2 pg (27.5-34.5); MEAN CORPUSCULAR HGB CONC 33.9 g/dL (33.2-36.2); MEAN PLATELET VOLUME 8.2 fL (7.4-10.4); MONOCYTES # (AUTO) 0.63 x10^3/uL (0.2-0.8); MONOCYTES % (AUTO) 6 % (2-9); NEUTROPHILS # (AUTO) 9.09 x10^3/uL (1.8-6.8); NEUTROPHILS % (AUTO) 87 % (42-75); PLATELET COUNT 250 x10^3/uL (130-400); RED BLOOD COUNT 4.66 x10^6/uL (4.38-5.82); RED CELL DISTRIBUTION WIDTH 14.3 % (9.4-14.8)
[2019-11-06] MEDS: hydrALAzine 20 MG/ML, 1ML IVPush PRN (06:37)
[2019-11-06] MEDS: ALBUTEROL/IPRATROPIUM 2.5MG/0.5MG, 3 ML NPPB SCH ×4 (06:45→20:52)
[2019-11-06] MEDS: DOXYCYCLINE 100MG TABLET PO SCH ×2 (07:30→21:04)
[2019-11-06] MEDS: BUSPIRONE 5 MG TABLET PO SCH ×2 (07:30→21:04)
[2019-11-06] MEDS: GUAIFENESIN ER 600 MG TABLET PO SCH ×2 (07:30→21:04)
[2019-11-06] MEDS: FLUOXETINE HCL 20 MG CAPSULE PO SCH (07:31)
[2019-11-06 07:38] VITALS: BP 148/88
[2019-11-06] MEDS ORDERED: LISINOPRIL 10 MG TABLET PO ONE (08:00)
[2019-11-06] MEDS: FAMOTIDINE 10 MG TAB PO SCH ×2 (10:50→21:04)
[2019-11-06 12:49] VITALS: BP 167/82
[2019-11-06 13:05] LABS: MICROSCOPIC NOT IND
[2019-11-06 13:07] LABS: CULTURE INDICATED? NO
[2019-11-06] MEDS: LORazepam 0.5MG TABLET PO PRN (13:21)
[2019-11-06 19:46] VITALS: BP 160/92
[2019-11-06] MEDS: CEFTRIAXONE PMX 2GM/50ML 50 ML IV SCH (20:01)
[2019-11-06] MEDS: NICOTINE 14MG/24 HR PATCH.TD24 TD SCH (21:05)
[2019-11-07 00:38] VITALS: BP 144/84
[2019-11-07] MEDS: morphine SULFATE 10 MG/ML, 1ML IVPush PRN ×2 (03:53→09:35)
[2019-11-07 06:05] LABS: BASOPHILS # (AUTO) 0.01 x10^3/uL (0-0.1); BASOPHILS % (AUTO) 0 % (0-1); EOSINOPHILS % (AUTO) 0 % (1-7); LYMPHOCYTES # (AUTO) 0.76 x10^3/uL (1-3.4); LYMPHOCYTES % (AUTO) 8 % (22-44); MD NO; MEAN CORPUSCULAR HEMOGLOBIN 32.4 pg (27.5-34.5); MEAN CORPUSCULAR HGB CONC 34.2 g/dL (33.2-36.2); MEAN CORPUSCULAR VOLUME 94.9 fL (81-97); MEAN PLATELET VOLUME 8.1 fL (7.4-10.4); MONOCYTES # (AUTO) 0.77 x10^3/uL (0.2-0.8); MONOCYTES % (AUTO) 8 % (2-9); NEUTROPHILS # (AUTO) 8.56 x10^3/uL (1.8-6.8); NEUTROPHILS % (AUTO) 85 % (42-75); PLATELET COUNT 240 x10^3/uL (130-400); RED BLOOD COUNT 4.34 x10^6/uL (4.38-5.82); RED CELL DISTRIBUTION WIDTH 14.4 % (9.4-14.8)
[2019-11-07] MEDS: ALBUTEROL/IPRATROPIUM 2.5MG/0.5MG, 3 ML NPPB SCH ×2 (06:55→10:41)
[2019-11-07 08:31] VITALS: BP 154/88
[2019-11-07] MEDS: methylPREDNISolone SOD SUCC 125 MG/2 ML IVPush SCH (08:33)
[2019-11-07] MEDS: FAMOTIDINE 10 MG TAB PO SCH (08:33)
[2019-11-07] MEDS: FLUOXETINE HCL 20 MG CAPSULE PO SCH (08:34)
[2019-11-07] MEDS: DOXYCYCLINE 100MG TABLET PO SCH (08:34)
[2019-11-07] MEDS: GUAIFENESIN ER 600 MG TABLET PO SCH (08:34)
[2019-11-07] MEDS: OXYcodone IR 5MG TABLET PO PRN (08:43)
[2019-11-07] MEDS: BUSPIRONE 5 MG TABLET PO SCH (09:30)
[2019-11-07] MEDS ORDERED: DOXY100T PO (10:40)
[2019-11-07] MEDS ORDERED: BACL20TA PO (10:57)
== END 2019-11-07 11:30 | disposition home or self-care (01) | DRG 177 ==
LOC: ED 16:49 → UNDOADMIN 18:42 → EDIP 18:42 → 3N 18:43
PROVIDERS: ADMIT Emergency Medicine; ATTEND Family Medicine
DX: J15.6 Pneumonia due to other Gram-negative bacteria (principal); N17.0 Acute kidney failure with tubular necrosis; J44.1 Chronic obstructive pulmonary disease with (acute) exacerbation; F31.30 Bipolar disorder, current episode depressed, mild or moderate severity, unspecified; J44.0 Chronic obstructive pulmonary disease with (acute) lower respiratory infection; Z88.0 Allergy status to penicillin; Z88.8 Allergy status to other drugs, medicaments and biological substances; F17.200 Nicotine dependence, unspecified, uncomplicated; F41.1 Generalized anxiety disorder; I73.9 Peripheral vascular disease, unspecified; M51.36 Other intervertebral disc degeneration, lumbar region; N40.0 Benign prostatic hyperplasia without lower urinary tract symptoms; Z80.0 Family history of malignant neoplasm of digestive organs; Z80.3 Family history of malignant neoplasm of breast; Z80.8 Family history of malignant neoplasm of other organs or systems; B96.89 Other specified bacterial agents as the cause of diseases classified elsewhere
CPT/HCPCS: 36415; 36600; 71046; 74176; 76700; 80048; 80053; 80061; 81003; 82803; 83036; 83735; 84100; 84439; 84443; 85025; 86140; 86704; 86706; 86708; 86803; 87070; 87077; 87186; 87205; 87340; 93005; 93306; 94640; 96365; 96375; G0378; J0696; J1885; J7613; J7620; J0360; J1940; J2270; J2930

== ENCOUNTER 2020-05-18 02:10 | Inpatient (IN) | payer MEDICARE, MEDICAID ==
[~2020-05-18] VITALS: Ht 182.9 cm; Wt 113.6 kg
[~2020-05-18 02:10] MED LIST changes: +BACL20TA PO; +DOXY100T PO
[2020-05-18] MEDS ORDERED: methylPREDNISolone SOD SUCC 125 MG/2 ML ONE ×2 (02:16→05:27)
[2020-05-18] MEDS ORDERED: ALBUTEROL/IPRATROPIUM 2.5MG/0.5MG, 3 ML ONE (02:18)
[2020-05-18] MEDS ORDERED: ALBUTEROL SULFATE 2.5MG/0.5ML ONE (02:19)
[2020-05-18] MEDS ORDERED: MORPHINE SULFATE 4 MG/ML, 1ML ONE ×2 (02:21→02:57)
[2020-05-18] MEDS: MORPHINE SULFATE 4 MG/ML, 1ML IVPush PRN ×2 (02:28→03:00)
[2020-05-18] MEDS: PLEASE ENTER ALLERGIES MC SCH ×3 (02:30→13:17)
[2020-05-18] MEDS ORDERED: methylPREDNISolone SOD SUCC 125 MG/2 ML IV ONE (02:30)
[2020-05-18] MEDS ORDERED: ALBUTEROL/IPRATROPIUM 2.5MG/0.5MG, 3 ML NPPB ONE (02:30)
[2020-05-18] MEDS ORDERED: AZITHROMYCIN 500 MG in SODIUM CHLORIDE 0.9% 250 ML IVPB ONE (02:30)
[2020-05-18] MEDS ORDERED: SODIUM CHLORIDE 0.9% 1,000ML IVBOLUS ONE (02:30)
--- NOTE | 2020-05-18 02:30 | NUR ---
PATIENT HAVING SOB FOR THE PAST WEEK, BUT GOT MUCH WORSE TODAY. PATIENT USING ACCESORY MUSCLES TO BREATHE. PATIENT STATES HAVING HERNIATED LUNG ON RIGHT SIDE FROM [facility], AND WAS SUPPOSED TO HAVE IT CHECKED OUT NEXT WEEK. PATIENT ALSO HAS HISTORY OF COPD AND IS A CURRENT SMOKER. PATIENT CAME FROM [facility] AND WAS GIVEN 2 DUONEBS, AND 1 ALBUTEROL DOSE. PATIENT ON 4L NC. LABS, XRAY, AND MEDS ORDERED
[2020-05-18 03:04] LABS: BASOPHILS # (AUTO) 0.03 x10^3/uL (0-0.1); BASOPHILS % (AUTO) 0 % (0-1); EOSINOPHILS # (AUTO) 0.22 x10^3/uL (0-0.4); EOSINOPHILS % (AUTO) 2 % (1-7); LYMPHOCYTES # (AUTO) 2.08 x10^3/uL (1-3.4); LYMPHOCYTES % (AUTO) 19 % (22-44); MD NO; MEAN CORPUSCULAR HEMOGLOBIN 30.9 pg (27.5-34.5); MEAN CORPUSCULAR HGB CONC 33.7 g/dL (33.2-36.2); MEAN CORPUSCULAR VOLUME 91.6 fL (81-97); MEAN PLATELET VOLUME 8.4 fL (7.4-10.4); MONOCYTES # (AUTO) 0.66 x10^3/uL (0.2-0.8); MONOCYTES % (AUTO) 6 % (2-9); NEUTROPHILS # (AUTO) 7.98 x10^3/uL (1.8-6.8); NEUTROPHILS % (AUTO) 73 % (42-75); PLATELET COUNT 237 x10^3/uL (130-400); RED BLOOD COUNT 4.91 x10^6/uL (4.38-5.82); RED CELL DISTRIBUTION WIDTH 17.1 % (9.4-14.8)
--- NOTE | 2020-05-18 03:04 | NUR ---
PRECEPTOR RN: RESPIRATIONS NOW 24, PT BREATHING WITH EASE. NO ACCESSORY MUSCLE USE AT THIS TIME, ABLE TO SPEAK CLEAR 7 WORD SENTENCES. SATS 97% ON O2 VIA NC. PT REPORTS RELIEF AFTER PAIN MED ADMINISTRATION.
[2020-05-18 03:21] LABS: ALBUMIN 3.8 g/dL (3.4-5.0); ANION GAP 5 mmol/L (5-15); CALCIUM 8.7 mg/dL (8.5-10.1); CHLORIDE 113 mmol/L (98-107); CREATININE 1.15 mg/dL (0.7-1.3)
--- NOTE | 2020-05-18 03:48 | NUR ---
PRECEPTOR RN: PT CONTINUES TO BREATHE WITH EASE. NO DISTRESS NOTED AT THIS TIME. PT DENIES ANY COMPLAINTS. SITTING IN POSITION OF COMFORT OFF SIDE OF GURNEY. WILL CONTINUE TO MONITOR.
--- NOTE | 2020-05-18 04:12 | NUR ---
PATIENT CHANGED POSITIONS FROM EDGE OF THE GURNEY TO LYING ON THE GURNEY. PATIENT BECAME VERY TACHYCARDIC AND SOB. ERP MADE AWARE, AND ORDERS WERE PLACED.
[2020-05-18] MEDS ORDERED: GUAIFENESIN/DM 200-20MG, 10ML UDC PO PRN (05:00)
[2020-05-18 05:08] LABS: TROPONIN I < 0.015 ng/mL (0.000-0.045)
[2020-05-18] MEDS ORDERED: HEPARIN 5,000 UNITS/ML, 1ML ONE (05:27)
[2020-05-18] MEDS ORDERED: NICOTINE 7 MG/24 HR PATCH.TD24 ONE (05:27)
[2020-05-18] MEDS: LIDODERM 5% PATCH TD SCH (05:31)
[2020-05-18] MEDS: HEPARIN 5,000 UNITS/ML, 1ML SQ SCH ×3 (05:32→20:58)
[2020-05-18] MEDS: NICOTINE 7 MG/24 HR PATCH.TD24 TD SCH (05:32)
[2020-05-18] MEDS ORDERED: methylPREDNISolone SOD SUCC 40 MG/ML ONE (05:36)
[2020-05-18] MEDS: methylPREDNISolone SOD SUCC 40 MG/ML IVPush SCH ×4 (05:38→23:21)
[2020-05-18] MEDS ORDERED: OMNIPAQUE 350 MG/ML, 100ML BOTTLE ONE (05:41)
--- NOTE | 2020-05-18 06:17 | NUR ---
PATIENT STOOD UP TO USE URINAL, PATIENT STEADY ON FEET. INCREASED EFFORT OF BREATHING
--- NOTE | 2020-05-18 07:08 | NUR ---
RECEIVED REPORT FROM OSVALDO SALMON AND ASSUMED CARE OF PT
--- NOTE | 2020-05-18 07:19 | NUR ---
REPORT TO ALBERTO RN AND PT TO BE TRANSFERED TO FLOOR
[2020-05-18 08:13] VITALS: BP 161/73
[2020-05-18] MEDS: SENNA/DOCUSATE TABLET PO SCH (09:00)
[2020-05-18] MEDS: BACLOFEN 10 MG TABLET PO SCH ×3 (09:13→20:58)
[2020-05-18] MEDS: ACETAMINOPHEN 325 MG TABLET PO PRN ×2 (09:14→13:25)
[2020-05-18] MEDS: FLUOXETINE HCL 20 MG CAPSULE PO SCH (09:14)
[2020-05-18] MEDS: ALBUTEROL HFA 90 MCG/SPRAY INH SCH ×3 (09:43→21:00)
[2020-05-18] MEDS: ALBUTEROL-IPRATROPIUM MDI INH INH SCH ×4 (09:43→21:01)
[2020-05-18 13:19] VITALS: BP 151/86
[2020-05-18] MEDS: OXYcodone/APAP 5/325MG TABLET PO PRN ×2 (16:54→23:21)
[2020-05-18 18:52] VITALS: BP 143/82
[2020-05-19 01:36] VITALS: BP 153/88
[2020-05-19] MEDS: PLEASE ENTER ALLERGIES MC SCH ×3 (02:30→17:49)
[2020-05-19] MEDS: HEPARIN 5,000 UNITS/ML, 1ML SQ SCH ×3 (04:30→21:49)
[2020-05-19] MEDS: methylPREDNISolone SOD SUCC 40 MG/ML IVPush SCH ×4 (04:30→23:59)
[2020-05-19] MEDS: NICOTINE 7 MG/24 HR PATCH.TD24 TD SCH (04:31)
[2020-05-19] MEDS: LIDODERM 5% PATCH TD SCH (04:32)
[2020-05-19] MEDS: ALBUTEROL-IPRATROPIUM MDI INH INH SCH ×4 (04:59→21:48)
[2020-05-19] MEDS: OXYcodone/APAP 5/325MG TABLET PO PRN ×3 (06:01→18:33)
[2020-05-19 06:15] VITALS: BP 159/99
[2020-05-19 06:26] LABS: BASOPHILS # (AUTO) 0.01 x10^3/uL (0-0.1); BASOPHILS % (AUTO) 0 % (0-1); EOSINOPHILS # (AUTO) 0.04 x10^3/uL (0-0.4); EOSINOPHILS % (AUTO) 0 % (1-7); LYMPHOCYTES # (AUTO) 0.84 x10^3/uL (1-3.4); LYMPHOCYTES % (AUTO) 7 % (22-44); MD NO; MEAN CORPUSCULAR HEMOGLOBIN 30.9 pg (27.5-34.5); MEAN CORPUSCULAR HGB CONC 33.4 g/dL (33.2-36.2); MEAN CORPUSCULAR VOLUME 92.5 fL (81-97); MEAN PLATELET VOLUME 8.8 fL (7.4-10.4); MONOCYTES # (AUTO) 0.25 x10^3/uL (0.2-0.8); MONOCYTES % (AUTO) 2 % (2-9); NEUTROPHILS % (AUTO) 91 % (42-75); PLATELET COUNT 230 x10^3/uL (130-400); RED BLOOD COUNT 4.74 x10^6/uL (4.38-5.82); RED CELL DISTRIBUTION WIDTH 17.2 % (9.4-14.8)
[2020-05-19 06:35] LABS: ANION GAP 7 mmol/L (5-15); CALCIUM 9.6 mg/dL (8.5-10.1); CHLORIDE 109 mmol/L (98-107); CREATININE 0.97 mg/dL (0.7-1.3)
[2020-05-19] MEDS: BACLOFEN 10 MG TABLET PO SCH ×3 (08:48→21:49)
[2020-05-19] MEDS: FLUOXETINE HCL 20 MG CAPSULE PO SCH (08:48)
[2020-05-19] MEDS: ALBUTEROL HFA 90 MCG/SPRAY INH SCH ×3 (08:52→21:48)
[2020-05-19] MEDS: SENNA/DOCUSATE TABLET PO SCH (09:00)
[2020-05-19 12:02] VITALS: BP 145/97
[2020-05-19 18:39] VITALS: BP 160/92
[2020-05-20] MEDS: OXYcodone/APAP 5/325MG TABLET PO PRN ×2 (00:36→07:09)
[2020-05-20 02:00] VITALS: BP 179/111
[2020-05-20 02:16] VITALS: BP 160/98
[2020-05-20] MEDS: PLEASE ENTER ALLERGIES MC SCH ×2 (02:17→10:30)
[2020-05-20] MEDS: NICOTINE 7 MG/24 HR PATCH.TD24 TD SCH (05:20)
[2020-05-20] MEDS: ALBUTEROL-IPRATROPIUM MDI INH INH SCH (05:20)
[2020-05-20] MEDS: LIDODERM 5% PATCH TD SCH (05:22)
[2020-05-20] MEDS: HEPARIN 5,000 UNITS/ML, 1ML SQ SCH (05:22)
[2020-05-20] MEDS: methylPREDNISolone SOD SUCC 40 MG/ML IVPush SCH (05:22)
[2020-05-20 08:02] VITALS: BP 159/102
[2020-05-20] MEDS: ALBUTEROL HFA 90 MCG/SPRAY INH SCH (08:06)
[2020-05-20] MEDS: FLUOXETINE HCL 20 MG CAPSULE PO SCH (08:06)
[2020-05-20] MEDS: BACLOFEN 10 MG TABLET PO SCH (08:07)
[2020-05-20] MEDS: SENNA/DOCUSATE TABLET PO SCH (09:00)
[2020-05-20] MEDS ORDERED: OXYC-302 PO (10:32)
[2020-05-20] MEDS ORDERED: LISI5TAB7 PO (10:38)
== END 2020-05-20 11:55 | disposition home or self-care (01) | DRG 191 ==
LOC: MERGE 02:10 → ED 04:48 → EDIP 05:00 → 4WST 07:48 → DCLOUNGE 05-20 11:51
PROVIDERS: ADMIT Family Medicine; ATTEND Family Medicine
DX: J44.1 Chronic obstructive pulmonary disease with (acute) exacerbation (principal); E87.2 Acidosis; R00.0 Tachycardia, unspecified; Z79.899 Other long term (current) drug therapy; F32.9 Major depressive disorder, single episode, unspecified; F17.210 Nicotine dependence, cigarettes, uncomplicated; Z88.0 Allergy status to penicillin; Z88.8 Allergy status to other drugs, medicaments and biological substances; D72.829 Elevated white blood cell count, unspecified; I10 Essential (primary) hypertension; J98.4 Other disorders of lung
CPT/HCPCS: 36415; 36600; 71045; 71275; 80048; 82040; 82803; 83880; 84145; 84484; 85025; 87040; 93005; 96365; 96375; 96376; 99291; G0378; J0456; J1644; Q9967; J2270; J2920; J2930; J7030; J7050

== ENCOUNTER 2020-05-22 12:58 | Observation (INO) | payer MEDICARE, MEDICAID ==
[~2020-05-22] VITALS: Ht 182.9 cm; Wt 118.3 kg
[~2020-05-22 12:58] MED LIST changes: +LISI5TAB7 PO
--- NOTE | 2020-05-22 13:13 | NUR ---
PT BIB BY EMS with C/O dizziness x1 week and chest pain since 1000. pt states he felt like he was going to pass out. pt connected to monitors and changed into hospital gown. IV est by EMS in route. 324 asa given prior to arrival. Call light within reach of pt.
--- NOTE | 2020-05-22 14:26 | NUR ---
lab and xray at bedside.
[2020-05-22 14:43] LABS: BASOPHILS # (AUTO) 0.02 x10^3/uL (0-0.1); BASOPHILS % (AUTO) 0 % (0-1); EOSINOPHILS # (AUTO) 0.14 x10^3/uL (0-0.4); EOSINOPHILS % (AUTO) 2 % (1-7); LYMPHOCYTES # (AUTO) 1.51 x10^3/uL (1-3.4); LYMPHOCYTES % (AUTO) 16 % (22-44); MD NO; MEAN CORPUSCULAR HEMOGLOBIN 31.1 pg (27.5-34.5); MEAN CORPUSCULAR HGB CONC 33.5 g/dL (33.2-36.2); MEAN CORPUSCULAR VOLUME 92.9 fL (81-97); MEAN PLATELET VOLUME 8.3 fL (7.4-10.4); MONOCYTES % (AUTO) 6 % (2-9); NEUTROPHILS # (AUTO) 7.11 x10^3/uL (1.8-6.8); NEUTROPHILS % (AUTO) 76 % (42-75); PLATELET COUNT 231 x10^3/uL (130-400); RED BLOOD COUNT 4.68 x10^6/uL (4.38-5.82); RED CELL DISTRIBUTION WIDTH 16.3 % (9.4-14.8)
[2020-05-22 14:53] LABS: ALBUMIN 3.7 g/dL (3.4-5.0); ANION GAP 3 mmol/L (5-15); CALCIUM 8.7 mg/dL (8.5-10.1); CHLORIDE 113 mmol/L (98-107)
[2020-05-22 14:58] LABS: ALANINE AMINOTRANSFERASE 66 U/L (12-78); ALKALINE PHOSPHATASE 75 U/L (45-117); BILIRUBIN,TOTAL 0.4 mg/dL (0.2-1.0); CREATININE 1.04 mg/dL (0.7-1.3); TOTAL PROTEIN 6.6 g/dL (6.4-8.2); TROPONIN I < 0.015 ng/mL (0.000-0.045)
[2020-05-22] MEDS ORDERED: ONDANSETRON 2MG/ML, 2ML IVPush ONE (15:00)
[2020-05-22] MEDS ORDERED: ASPIRIN 81 MG TABLET CHEW PO ONE (15:00)
[2020-05-22] MEDS ORDERED: SODIUM CHLORIDE FLUSH 10ML SYR IVF ONE (15:00)
[2020-05-22] MEDS ORDERED: MORPHINE SULFATE 4 MG/ML, 1ML ONE ×2 (15:03→15:34)
[2020-05-22] MEDS ORDERED: ONDANSETRON 2MG/ML, 2ML ONE (15:03)
[2020-05-22] MEDS: MORPHINE SULFATE 4 MG/ML, 1ML IVPush PRN ×2 (15:06→15:37)
--- NOTE | 2020-05-22 15:07 | NUR ---
Clarrified aspirin order d/t pt receiving 324 asa in route to the ED. Order obtained to non-admin 162 asa ordered.
--- NOTE | 2020-05-22 15:44 | NUR ---
Dr. Powers at bedside.
[2020-05-22 17:01] VITALS: BP 166/97
[2020-05-22] MEDS ORDERED: PROMETHAZINE 25 MG/ML, 1ML IM PRN (17:30)
[2020-05-22] MEDS ORDERED: ONDANSETRON ODT 4 MG PO PRN (17:30)
[2020-05-22] MEDS ORDERED: BISACODYL 10 MG SUPP PR PRN (17:30)
[2020-05-22] MEDS ORDERED: morphine SULFATE 10 MG/ML, 1ML IVPush PRN (17:30)
[2020-05-22] MEDS ORDERED: DOCUSATE 100 MG CAPSULE PO PRN (17:30)
[2020-05-22] MEDS ORDERED: hydrALAzine 20 MG/ML, 1ML IVPush PRN (17:30)
[2020-05-22] MEDS ORDERED: POLYETHYLENE GLYCOL 17 GM PACKET PO PRN (17:30)
[2020-05-22] MEDS ORDERED: ACETAMINOPHEN 325 MG TABLET PO PRN (17:30)
[2020-05-22] MEDS ORDERED: ONDANSETRON 2MG/ML, 2ML IVPush PRN (17:30)
[2020-05-22 18:29] LABS: FREE T4 (FREE THYROXINE) 1.04 ng/dL (0.76-1.46)
[2020-05-22 19:56] LABS: TROPONIN I < 0.015 ng/mL (0.000-0.045)
[2020-05-22 20:18] VITALS: BP 109/69
[2020-05-22] MEDS: ALBUTEROL-IPRATROPIUM MDI INH INH SCH (21:30)
[2020-05-22] MEDS: OXYcodone IR 5MG TABLET PO PRN (21:30)
[2020-05-23 01:39] VITALS: BP 149/93
[2020-05-23 01:44] LABS: TROPONIN I < 0.015 ng/mL (0.000-0.045)
[2020-05-23] MEDS: OXYcodone IR 5MG TABLET PO PRN ×2 (04:49→14:37)
[2020-05-23 05:11] LABS: BASOPHILS # (AUTO) 0.04 x10^3/uL (0-0.1); BASOPHILS % (AUTO) 0 % (0-1); EOSINOPHILS # (AUTO) 0.18 x10^3/uL (0-0.4); EOSINOPHILS % (AUTO) 2 % (1-7); LYMPHOCYTES # (AUTO) 2.11 x10^3/uL (1-3.4); LYMPHOCYTES % (AUTO) 19 % (22-44); MD NO; MEAN CORPUSCULAR HEMOGLOBIN 30.9 pg (27.5-34.5); MEAN CORPUSCULAR HGB CONC 33.3 g/dL (33.2-36.2); MEAN CORPUSCULAR VOLUME 92.7 fL (81-97); MEAN PLATELET VOLUME 8.8 fL (7.4-10.4); MONOCYTES # (AUTO) 0.66 x10^3/uL (0.2-0.8); MONOCYTES % (AUTO) 6 % (2-9); NEUTROPHILS # (AUTO) 8.14 x10^3/uL (1.8-6.8); NEUTROPHILS % (AUTO) 73 % (42-75); PLATELET COUNT 233 x10^3/uL (130-400); RED BLOOD COUNT 4.67 x10^6/uL (4.38-5.82); RED CELL DISTRIBUTION WIDTH 16.9 % (9.4-14.8)
[2020-05-23 05:17] LABS: ALANINE AMINOTRANSFERASE 66 U/L (12-78); ALBUMIN 3.6 g/dL (3.4-5.0); ANION GAP 6 mmol/L (5-15); CALCIUM 8.4 mg/dL (8.5-10.1); CHLORIDE 109 mmol/L (98-107); CREATININE 0.98 mg/dL (0.7-1.3)
[2020-05-23 05:19] LABS: ALKALINE PHOSPHATASE 77 U/L (45-117); BILIRUBIN,TOTAL 0.4 mg/dL (0.2-1.0); CHOL/HDL RATIO 2.8; CHOLESTEROL, TOTAL 167 mg/dL (140-239); HDL CHOL % 36 % (26-37); HDL CHOLESTEROL (DIRECT) 60 mg/dL (40-60); LDL CHOLESTEROL,CALCULATED 79 mg/dL (54-169); LDL/HDL RATIO 1.3 (0.5-3.0); TOTAL PROTEIN 6.5 g/dL (6.4-8.2); TRIGLYCERIDES 139 mg/dL (50-200); VLDL CHOLESTEROL 28 mg/dL (0-25)
[2020-05-23] MEDS: ALBUTEROL-IPRATROPIUM MDI INH INH SCH ×3 (06:00→15:18)
[2020-05-23 07:54] VITALS: BP 153/82
[2020-05-23] MEDS ORDERED: REGADENOSON 0.4 MG/5 ML SYRINGE ONE (08:03)
[2020-05-23] MEDS ORDERED: FLUTICASONE/VILANTEROL 100-25MCG/INH INH SCH (09:00)
[2020-05-23] MEDS ORDERED: LISINOPRIL 10 MG TABLET PO SCH (09:00)
[2020-05-23 12:31] VITALS: BP 135/83
[2020-05-23] MEDS ORDERED: FLUT1AER INH (13:39)
[2020-05-23] MEDS ORDERED: PRED5TAB PO (13:39)
[2020-05-23] MEDS ORDERED: ACET325T26 PO (13:39)
[2020-05-23] MEDS ORDERED: PANT40TA5 PO (13:45)
== END 2020-05-23 17:10 | disposition home or self-care (01) ==
LOC: ED 14:50 → INTOOBSV 15:40 → EDIP 15:40 → 5SO 16:41
PROVIDERS: ADMIT Internal Medicine; ATTEND Internal Medicine
DX: R07.9 Chest pain, unspecified (principal); J44.9 Chronic obstructive pulmonary disease, unspecified; I10 Essential (primary) hypertension; F17.200 Nicotine dependence, unspecified, uncomplicated; S22.39XA Fracture of one rib, unspecified side, initial encounter for closed fracture; N40.0 Benign prostatic hyperplasia without lower urinary tract symptoms; F31.9 Bipolar disorder, unspecified; I73.9 Peripheral vascular disease, unspecified; Z79.899 Other long term (current) drug therapy
CPT/HCPCS: 36415; 71045; 78452; 80053; 80061; 83036; 83605; 83735; 84439; 84443; 84484; 85025; 93005; 93017; 96374; 96375; 99285; A9502; C9898; G0378; J2270; J2405; J2785; J7512

== ENCOUNTER 2020-06-03 15:19 | Emergency (ER) | payer MEDICARE, MEDICAID ==
[~2020-06-03] VITALS: Ht 182.9 cm; Wt 115.0 kg
[~2020-06-03 15:19] MED LIST changes: +ACET325T26 PO; +PANT40TA6 PO; +PRED5TAB PO
[2020-06-03] MEDS ORDERED: HYDROmorphone 1 MG/ML, 1ML INJ ONE (15:27)
[2020-06-03] MEDS ORDERED: SODIUM CHLORIDE FLUSH 10ML SYR IVF ONE (15:30)
[2020-06-03] MEDS ORDERED: ONDANSETRON 2MG/ML, 2ML IVPush ONE (15:30)
[2020-06-03 16:02] LABS: BASOPHILS # (AUTO) 0.06 x10^3/uL (0-0.1); BASOPHILS % (AUTO) 1 % (0-1); EOSINOPHILS # (AUTO) 0.06 x10^3/uL (0-0.4); EOSINOPHILS % (AUTO) 1 % (1-7); LYMPHOCYTES # (AUTO) 1.81 x10^3/uL (1-3.4); LYMPHOCYTES % (AUTO) 18 % (22-44); MD NO; MEAN CORPUSCULAR HEMOGLOBIN 31.2 pg (27.5-34.5); MEAN CORPUSCULAR VOLUME 94.6 fL (81-97); MEAN PLATELET VOLUME 8.1 fL (7.4-10.4); MONOCYTES # (AUTO) 0.68 x10^3/uL (0.2-0.8); MONOCYTES % (AUTO) 7 % (2-9); NEUTROPHILS # (AUTO) 7.36 x10^3/uL (1.8-6.8); NEUTROPHILS % (AUTO) 74 % (42-75); PLATELET COUNT 267 x10^3/uL (130-400); RED BLOOD COUNT 4.89 x10^6/uL (4.38-5.82); RED CELL DISTRIBUTION WIDTH 16.4 % (9.4-14.8)
--- NOTE | 2020-06-03 16:08 | NUR ---
Pt arrives to ed with sudden onset of sob via ems. Pt recently had a herniated lung and reports when he coughed today that he felt the same pain and type if discomfort as the last time from the herniated lung trauma. Pt reports pain is a 10/10 and pt is severly diaphoretic and breathing 30-40 times a minute shallowly. Pt reports that he is unable to catch his breath and is unable to take a deep breath. Pt is in between bigeminy and trigeminy. Pt reports that the diludid did help his pain. Pt connected to monitors and call light in reach. Awaiting further orders. Pt EKG shown to MD and no new orders. CT made aware of pt to have scan done as soon as kidney function is back. Pt close to nurses station.
[2020-06-03 16:12] LABS: ALANINE AMINOTRANSFERASE 35 U/L (12-78); ANION GAP 6 mmol/L (5-15); CHLORIDE 110 mmol/L (98-107); CREATININE 1.24 mg/dL (0.7-1.3)
[2020-06-03] MEDS: HYDROmorphone 2 MG/ML, 1ML IVPush PRN ×2 (16:15→16:50)
[2020-06-03 16:16] LABS: ALKALINE PHOSPHATASE 87 U/L (45-117); BILIRUBIN,TOTAL 0.4 mg/dL (0.2-1.0); TOTAL PROTEIN 7.5 g/dL (6.4-8.2); TROPONIN I < 0.015 ng/mL (0.000-0.045)
--- NOTE | 2020-06-03 16:16 | NUR ---
No zofran given to patient as he reports he is not having nausea.
[2020-06-03] MEDS ORDERED: HYDROmorphone 2 MG/ML, 1ML ONE (16:48)
[2020-06-03] MEDS ORDERED: OMNIPAQUE 350 MG/ML, 75ML BOTTLE ONE (17:19)
[2020-06-03] MEDS ORDERED: HYDROmorphone 2 MG/ML, 1ML IVPush PRN (17:30)
--- NOTE | 2020-06-03 17:59 | NUR ---
BREAK RN: DR STEPHENSON IN ROOM UPDATING PATIENT.
--- NOTE | 2020-06-03 18:28 | NUR ---
IVF running at this time.
[2020-06-03] MEDS ORDERED: SODIUM CHLORIDE 0.9% 1,000ML IVBOLUS ONE (18:30)
[2020-06-03 19:37] VITALS: BP 129/83
--- NOTE | 2020-06-03 19:49 | NUR ---
Attempted to call patients ride, no answer
--- NOTE | 2020-06-03 20:07 | NUR ---
Patient/Caregiver given discharge instructions and they have confirmed that they understand the instructions. Patient ambulatory with steady gait. Pts caregiver in route to tack picker. Splinting cough education given.
== END 2020-06-03 20:10 | disposition home or self-care (01) ==
LOC: MERGE 15:19 → ED 17:42
DX: S22.31XA Fracture of one rib, right side, initial encounter for closed fracture (principal); R00.0 Tachycardia, unspecified; R10.9 Unspecified abdominal pain; F17.200 Nicotine dependence, unspecified, uncomplicated; X58.XXXA Exposure to other specified factors, initial encounter; Y93.89 Activity, other specified; Y92.89 Other specified places as the place of occurrence of the external cause; Y99.8 Other external cause status
CPT/HCPCS: 36415; 71045; 71275; 80053; 84484; 85025; 93005; 96374; 96376; 99285; J1170; Q9967

== ENCOUNTER 2020-08-10 18:45 | Emergency (ER) | payer MEDICARE, MEDICAID ==
[~2020-08-10 18:45] MED LIST changes: -RISP1TAB3 PO; +RISP1TAB90 PO
--- NOTE | 2020-08-10 18:56 | NUR ---
NO ANSWER FROM LOBBY
== END 2020-08-10 19:42 ==
LOC: ED 19:25
DX: R06.02 Shortness of breath (principal); R07.9 Chest pain, unspecified; Z53.21 Procedure and treatment not carried out due to patient leaving prior to being seen by health care provider